=== PATIENT | female | born 1990 | race Caucasian/White ===

== ENCOUNTER 2020-04-08 19:58 | Emergency (ER) | payer BC ==
[~2020-04-08] VITALS: Ht 177.8 cm; Wt 77.3 kg
[~2020-04-08 19:58] MED LIST: NO HOME MEDS
[2020-04-08 20:08] VITALS: BP 129/98
[2020-04-08] MEDS ORDERED: TETanus/Pertussis (Acell)/Diphther VAC/PF (Tdap-Adult) 0.5ml syringe IMVAC ONE (20:20)
[2020-04-08] MEDS ORDERED: AMOX-117 PO (20:24)
== END 2020-04-08 21:14 | disposition home or self-care (01) ==
LOC: ER 19:59
DX: S61.232A Puncture wound without foreign body of right middle finger without damage to nail, initial encounter (principal); Z88.2 Allergy status to sulfonamides; Z79.899 Other long term (current) drug therapy; W54.0XXA Bitten by dog, initial encounter; Y93.89 Activity, other specified; Y92.89 Other specified places as the place of occurrence of the external cause; Y99.8 Other external cause status
CPT/HCPCS: 73130; 90471; 90715; 99283